=== PATIENT | female | born 1990 | race Caucasian/White ===

== ENCOUNTER 2019-06-17 15:35 | Inpatient (IN) ==
--- NOTE | 2019-06-17 15:52 | PROVIDER DOCUMENTATION ---
HPI-Psychological Disorder - General Chief Complaint: Intoxicated Stated Complaint: PSYCH (OUT OF MEDS) Time Seen by Provider: 06/17/19 15:36 Source: patient Unable to obtain history due to:: altered Allergies/Adverse Reactions: Patient Allergies Allergy/AdvReac Type Severity Reaction Status Date / Time haloperidol [From Haldol] Allergy Intermediate RASH Verified 06/17/19 16:07 Home Medications: Home Medication List Medication Instructions Recorded Confirmed Last Taken Type Metronidazole [Flagyl] 500 mg PO BID #14 tab 06/17/19 Unknown Rx - History of Present Illness-Psych Nature of Presenting Problem: [id number] presents to the ER for psych evaluation/intoxication via EMS. EMS reports that Ernesto VILLEDA called them for brain picker, as patient was [place] around [place]. EMS reports that she was "taking a nap under the overpass by the [employer]". Upon arrival, the patient is very disoriented. She answers every question with "yeah, Yes". EMS reports that she did the same thing in the ambulance. There is no previous history on this patient or external medication history available. However, the patient does appear to be intoxicated. One other visit to the ER shows that pt is homeless. Onset/Duration: reports: just prior to arrival Review of Systems - Adult - REVIEW OF SYSTEMS - ADULT ROS:: limited per condition Constitutional: reports: no symptoms reported Eyes: reports: no symptoms reported Ears, Nose, Mouth & Throat: reports: no symptoms reported Cardiovascular: reports: no symptoms reported Respiratory: reports: no symptoms reported Gastrointestinal: reports: no symptoms reported Genitourinary: reports: no symptoms reported Musculoskeletal: reports: no symptoms reported Integumentary: reports: no symptoms reported Neurological: reports: no symptoms reported Psychiatric: reports: no symptoms reported Endocrine: reports: no symptoms reported Hematologic/Lymphatic: reports: no symptoms reported Allergic/Immunologic: reports: no symptoms reported All Other Systems: Reviewed and Negative Past History - Adult - PAST MEDICAL HISTORY-ADULT Review of Records: reports: Old Records Reviewed, Nursing Assessment Review, Medications Reviewed, Social history reviewed & non-contributory. Major Childhood Illnesses: reports: denies history Cardiovascular: reports: denies history Respiratory: reports: denies history Gastrointestinal: reports: denies history Obstetrical/Gynecological: reports: denies history Genitourinary: reports: denies history Musculoskeletal: reports: denies history Neurological: reports: denies history Endocrine/Immune: reports: denies history Other Conditions: reports: denies history - PRIOR SURGERIES/PROCEDURES Surgical/Procedure History: reports: reviewed, not pertinent - IMMUNIZATION STATUS Childhood Immunizations: See Nurse Assessment Flu Vaccine: See Nurse Assessment - FAMILY HISTORY Family History: reviewed, not pertinent - SOCIAL HISTORY Living Situation: [facility] Physical Exam-Psych Focus - Physical Exam-Psych Initial Vital Signs Reviewed: Yes Appearance: disheveled, lethargic, slow to respond Neurological: disoriented x 3 HENMT: normocephalic/atraumatic, moist mucous membranes, dental decay Respiratory: lungs clear, normal breath sounds Cardiovascular: tachycardia Extremity: normal range of motion, normal gait Progress - PLAN OF CARE/RESULTS Progress/Plan/Lab Results: Vital Signs - 8 hr 06/18/19 02:10 06/18/19 02:43 06/18/19 02:50 Temperature 100.3 F H 99.9 F H Pulse Rate 122 H Pulse Rate [Sitting] 112 H Pulse Rate [Supine] 122 H Respiratory Rate 16 Blood Pressure 73/40 Blood Pressure [Sitting] 76/46 Blood Pressure [Supine] 68/35 O2 Sat by Pulse Oximetry 97 06/18/19 04:34 Temperature 98.8 F Pulse Rate 89 Pulse Rate [Sitting] Pulse Rate [Supine] Respiratory Rate 20 Blood Pressure 89/43 Blood Pressure [Sitting] Blood Pressure [Supine] O2 Sat by Pulse Oximetry 98 Laboratory Results - last 24 hr 06/17/19 06/17/19 06/17/19 15:59 15:59 16:01 WBC RBC Hgb Hct MCV MCH MCHC RDW Std Deviation Plt Count MPV Immature Gran % (Auto) Neut % (Auto) Lymph % (Auto) Harding % (Auto) Eos % (Auto) Baso % (Auto) Immature Gran # (Auto) Neut # (Auto) Lymph # (Auto) Harding # (Auto) Eos # (Auto) Baso # (Auto) Sodium Potassium Chloride Carbon Dioxide Anion Gap BUN Creatinine Estimated GFR/1.73 m2 BUN/Creatinine Ratio Glucose Calculated Osmolality Calcium Total Bilirubin AST ALT Alkaline Phosphatase Total Protein Albumin Globulin Albumin/Globulin Ratio Plasma Lactate Urine Source CLEAN CATCH Urine Color YELLOW Urine Turbidity CLEAR Urine pH 7.5 Ur Specific Woodward 1.014 Urine Protein NEGATIVE Ur Glucose (Stick) NEGATIVE Ur Ketones (Stick) NEGATIVE Urine Blood NEGATIVE Urine Nitrite NEGATIVE Urine Bilirubin NEGATIVE Urobilinogen Dipstick NORMAL Urine Leukocytes SMALL A Urine WBC (Auto) 10-20 A Urine RBC (Auto) <10 U Epithel Cells (Auto) <10 Urine Bacteria (Auto) NEGATIVE Urine Crystals NONE SEEN Small Round Cells Not Reportable Urine Casts Not Reportable Urine Yeast-like Cells Not Reportable Urine Opiates Screen NONE DETECTED Ur Oxycodone Screen NONE DETECTED Ur Methadone, Qual NONE DETECTED Ur Barbiturates Screen NONE DETECTED Ur Phencyclidine Scrn NONE DETECTED Ur Amphetamines Screen NONE DETECTED U Benzodiazepines Scrn NONE DETECTED Urine Cocaine Screen NONE DETECTED U Cannabinoids Screen NONE DETECTED Plasma/Serum Ethyl Alc 06/17/19 06/17/19 06/18/19 16:07 16:07 04:46 WBC 12.38 H RBC 4.99 Hgb 11.7 L Hct 37.3 MCV 74.7 L MCH 23.4 L MCHC 31.4 L RDW Std Deviation 15.3 H Plt Count 372 MPV 11.2 H Immature Gran % (Auto) 0.2 Neut % (Auto) 85.9 H Lymph % (Auto) 9.2 L Harding % (Auto) 3.6 Eos % (Auto) 0.9 Baso % (Auto) 0.2 Immature Gran # (Auto) 0.03 Neut # (Auto) 10.62 H Lymph # (Auto) 1.14 L Harding # (Auto) 0.45 Eos # (Auto) 0.11 Baso # (Auto) 0.03 Sodium 133 L Potassium 4.2 Chloride 94 L Carbon Dioxide 25 Anion Gap 14 BUN 5 L Creatinine 0.6 Estimated GFR/1.73 m2 > 60 BUN/Creatinine Ratio 8 Glucose 71 Calculated Osmolality 262 Calcium 9.3 Total Bilirubin 0.31 AST 17 ALT 13 Alkaline Phosphatase 92 Total Protein 7.1 Albumin 3.6 Globulin 3.5 Albumin/Globulin Ratio 1.0 Plasma Lactate 0.5 Urine Source Urine Color Urine Turbidity Urine pH Ur Specific Woodward Urine Protein Ur Glucose (Stick) Ur Ketones (Stick) Urine Blood Urine Nitrite Urine Bilirubin Urobilinogen Dipstick Urine Leukocytes Urine WBC (Auto) Urine RBC (Auto) U Epithel Cells (Auto) Urine Bacteria (Auto) Urine Crystals Small Round Cells Urine Casts Urine Yeast-like Cells Urine Opiates Screen Ur Oxycodone Screen Ur Methadone, Qual Ur Barbiturates Screen Ur Phencyclidine Scrn Ur Amphetamines Screen U Benzodiazepines Scrn Urine Cocaine Screen U Cannabinoids Screen Plasma/Serum Ethyl Alc Orders Category Date Time Status Consult for Inpt Psych Tx DIRECTED Care 06/17/19 16:38 Active ED: Orthostatic Vital Signs (ER use this DIRECTED Care 06/18/19 02:31 Active NEWS Score 2-4:Order NEWS Lactate Series NOW Care 06/18/19 04:59 Active Regular Diet Diet 06/17/19 18:06 Active ALCOHOL BLOOD Stat Lab 06/17/19 16:01 Completed BLOOD CULTURE [BLDCUL] Stat Lab 06/18/19 04:51 Results CBC WITH ELECTRONIC DIFF [HEME] Stat Lab 06/17/19 16:07 Completed CMP [COMPREHENSIVE METABOLIC PANEL] [CHEM] Stat Lab 06/17/19 16:07 Completed LACTATE, PLASMA [CHEM] Lab 06/18/19 08:00 Uncollected LACTATE, PLASMA [CHEM] Lab 06/18/19 11:00 Uncollected LACTATE, PLASMA [CHEM] Q3H Lab 06/18/19 04:46 Completed UA NIMS W/REFLEX CULT [URINALYSIS] Stat Lab 06/17/19 15:59 Completed URINE CULTURE [RM] Routine Lab 06/17/19 15:59 Received URINE DRUG SCREEN Stat Lab 06/17/19 15:59 Completed URINE MANUAL MICROSCOPIC [URINALYSIS] Stat Lab 06/17/19 15:59 Completed 0.9% Sodium Chloride Inj [Ns] 1,000 ml Med 06/18/19 02:31 Discontinued IV 999 mls/hr 0.9% Sodium Chloride Inj [Ns] 1,000 ml Med 06/18/19 04:33 Discontinued IV 999 mls/hr Acetaminophen [Tylenol] Med 06/18/19 02:31 Discontinued 1,000 mg PO NOW ONE Azithromycin [Zithromax] Med 06/17/19 16:33 Discontinued 1,000 mg PO NOW ONE CefTRIAXONE [Rocephin] Med 06/17/19 16:33 Discontinued 1 gm IM NOW ONE Lidocaine 1% Pf [Xylocaine-Mpf 1%] Med 06/17/19 16:33 Discontinued 5 ml INJ NOW ONE Metronidazole [Flagyl] Med 06/17/19 21:00 Discontinued 500 mg PO BID Metronidazole [Flagyl] Med 06/17/19 21:00 Discontinued 500 mg PO BID Metronidazole [Flagyl] Med 06/18/19 03:30 Active 500 mg PO Q12H Olanzapine [Zyprexa] Med 06/17/19 18:37 Discontinued 15 mg PO NOW ONE Ondansetron [Zofran] Med 06/18/19 03:28 Discontinued 8 mg IV NOW ONE Result Diagrams: 06/17/19 16:07 06/17/19 16:07 - REASSESSMENT Reassessment #1 Time Reassessed: 02:29 Status: other (Pt spiked a temp and her SBP was 70. Pt asymptomatic escept for the temp. WIll get CXR, blood cultres, tylenol and IVF) - PSYCHIATRIC Medically clear for psych eval and/or transfer to IP bed.: Yes Psych patient progress: patient screens for inpatient psych, however, [facility] states that if she chooses to leave she may do so at her own choosing. - CONSULTS/PCP/HOSPITALIST Notification #1 *Consult/PCP/Hospitalist*: d/w Dr Byrd Time Discussed: 06:15 Consult Disposition: Admit (Advised another bolus and re-evaluate. Advised HCG urine, Chest Xray and CT head. Will admit) - CHANGE OF SHIFT REPORT (ED Provider) 1 Report Given and Care Transferred to:: Dr Holman Time of Transfer: 19:39 Items Pending: Other (psych placement) Departure - Departure Date of Disposition Decision: 06/18/19 Time of Disposition Decision: 06:23 DIAGNOSIS: AMS (altered mental status), Homelessness, Orthostatic hypotension, Hypotension Disposition: ADMITTED INPATIENT 09 Certified Medical Emergency: Emergent Condition: Stable Prescriptions: Metronidazole [Flagyl] 500 mg PO BID #14 tab Prescription Printed Referrals and Follow-Ups: None,PCP [Primary Care Provider] - - Critical Care Note This patient required my direct & personal management of CC.: No Attestation - Physician/ ZECHARIAH Attestation Patient care was provided by Advanced Practice Provider:: Yes Advanced Practice Provider:: Saurav Pitt Advanced Practice Provider documentation review:: The Mid-level provider documentation, treatment plan and medical decision making was reviewed by the physician who agrees with all treatment and medical decision making by the MLP. The physician spent face to face time with patient:: Yes Advanced Practice Provider documentation review:: Supervising physician onsite and consulted in the evaluation and care of this patient. The physician did have a face to face encounter with the patient.
[2019-06-17 16:14] LABS: URINE SOURCE CLEAN CATCH
[2019-06-17 16:21] LABS: BILIRUBIN URINE NEGATIVE (NEGATIVE); BLOOD URINE NEGATIVE (NEGATIVE); COLOR YELLOW; GLUCOSE URINE NEGATIVE (NEGATIVE); KETONE URINE NEGATIVE (NEGATIVE); LEUKOCYTES URINE SMALL (NEGATIVE); NITRITE URINE NEGATIVE (NEGATIVE); PH URINE 7.5; PROTEIN URINE NEGATIVE (NEGATIVE); SP GRAVITY URINE 1.014; TURBIDITY URINE CLEAR (CLEAR); UROBILINOGEN URINE NORMAL (NORMAL)
[2019-06-17 16:23] LABS: UR EPITHELIAL CELLS <10 /HPF (<10); URINE BACTERIA NEGATIVE /HPF; URINE RBC <10 /HPF (<10)
[2019-06-17 16:31] LABS: UR AMPHETAMINES QUAL NONE DETECTED (NONE DETECT); UR BARBITUATES QUAL NONE DETECTED (NONE DETECT); UR BENZODIAZEPIN QUAL NONE DETECTED (NONE DETECT); UR CANNABINOIDS QUAL NONE DETECTED (NONE DETECT); UR COCAINE QUAL NONE DETECTED (NONE DETECT); UR METHADONE QUAL NONE DETECTED (NONE DETECT); UR OPIATES QUAL NONE DETECTED (NONE DETECT); UR OXYCODONE QUAL NONE DETECTED (NONE DETECT); UR PCP QUAL NONE DETECTED (NONE DETECT)
[2019-06-17] MEDS ORDERED: ROCEPHIN IM ONE (16:33)
[2019-06-17] MEDS ORDERED: ZITHROMAX PO ONE (16:33)
[2019-06-17] MEDS ORDERED: XYLOCAINE-MPF 1% INJ ONE (16:33)
[2019-06-17 16:36] LABS: URINE CRYSTALS NONE SEEN
[2019-06-17] MEDS ORDERED: ZYPREXA PO ONE (18:37)
[2019-06-17 18:53] LABS: BASO# 0.03 X1000 (0.0-0.2); BASO% 0.2 % (0.0-0.8); EOS# 0.11 X1000 (0.0-0.7); EOS% 0.9 % (0.0-10.0); HEMATOCRIT 37.3 % (37.0-47.0); HEMOGLOBIN 11.7 g/dL (12.0-16.0); IMM GRAN# 0.03 X1000 (0.0-0.04); IMM GRAN% 0.2 % (0.0-0.5); LYMPH# 1.14 X1000 (1.2-3.4); LYMPH% 9.2 % (20.5-51.1); MCH 23.4 PG (27-31); MCHC 31.4 g/dL (33-37); MCV 74.7 FL (81-99); MONO# 0.45 X1000 (0.11-0.59); MONO% 3.6 % (1.7-9.3); MPV 11.2 FL (7.4-10.4); NEUT# 10.62 X1000 (1.4-6.5); NEUT% 85.9 % (42.2-75.2); PLT 372 X1000 (130-400); RBC 4.99 XMIL (4.2-5.4); RDW 15.3 % (11.5-14.5); WBC 12.38 X1000 (4.8-10.8)
[2019-06-17 19:17] LABS: AGAP 14; ALBUMIN 3.6 g/dL (3.5-5.0); ALKALINE PHOSPHATASE 92 U/L (32-104); BUN 5 mg/dL (8-22); CALCIUM 9.3 mg/dL (8.8-10.2); CHLORIDE 94 mmol/L (98-107); COSMO 262; CREATININE 0.6 mg/dL (0.5-0.9); ESTIMATED GFR > 60; GLUCOSE 71 mg/dL (70-104); GOT 17 U/L (10-30); GPT 13 U/L (10-36); POTASSIUM 4.2 mmol/L (3.5-5.1); SODIUM 133 mmol/L (136-145); TCO2 25 mmol/L (25-35); TOTAL BILIRUBIN 0.31 mg/dL (0.20-1.00); TOTAL PROTEIN 7.1 g/dL (6.3-8.3)
[2019-06-17] MEDS ORDERED: FLAGYL PO SCH ×2 (21:00)
[2019-06-18] MEDS ORDERED: NS 1,000 ML IV ONE ×3 (02:31→06:42)
[2019-06-18] MEDS ORDERED: TYLENOL PO ONE (02:31)
[2019-06-18] MEDS ORDERED: ZOFRAN IV ONE (03:28)
[2019-06-18] MEDS ORDERED: FLAGYL PO SCH (03:30)
[2019-06-18] MEDS ORDERED: ZOFRAN IV PRN (07:42)
[2019-06-18] MEDS: NS 1,000 ML IV SCH ×2 (08:03→20:22)
[2019-06-18] MEDS: LEVOPHED 8 MG in D5 1/2 NS 250 ML IV SCH ×2 (08:07→17:03)
--- NOTE | 2019-06-18 08:53 | HISTORY AND PHYSICAL ---
PRIMARY CARE PHYSICIAN: Listed as none. CHIEF COMPLAINT: Was found by the police department [place], was very disoriented, and unable to answer questions. HISTORY OF PRESENTING ILLNESS: This is a 28-year-old female, who presents to [facility] via EMS after she was found by [place] [employer] taking a "nap" under the overpass by the [employer] market. When she arrived, she was disoriented, stated when she first arrived that she was out of her [facility] and [facility]. When they asked her why she was here, the patient stated" my BBs hurt, they will produce milk", would not answer questions appropriately, but did deny any recreational drug use. When she first arrived, her temperature was 98.4 degrees, blood pressure was 100/70. Around 2 a.m. this morning, her temperature went to 100.3, her blood pressure dropped to 68/35 lying and a sitting of 76/46. She was given a total of 3 L of normal saline and it is still in Trendelenburg 88/42. Laboratory data was fairly unremarkable. Urinalysis was clear except for 10 to 20 white blood cells. Her urine drug screen was negative. Her serum alcohol level showed none detected. She has a pending chest x-ray and CT of the head to be done this morning, and she will now be placed on a Levophed drip and admitted to the intensive care unit. PAST MEDICAL HISTORY: Unknown, but she does have a psychiatric background according to her stating that she was out of [facility] and [facility]. PAST SURGICAL HISTORY: Back surgery. FAMILY HISTORY: Reviewed and noncontributory. SOCIAL HISTORY: She is noted to be homeless. Smokes a pack of cigarettes a day for an unknown amount of time. Drinks alcohol occasionally, and denied any illicit drug use. ALLERGIES: Haloperidol. HOME MEDICATIONS: Unknown. LABORATORY DATA: Showed a white blood cell count of 12.38, hemoglobin 11.7, hematocrit 37.3, platelets 372,000. Sodium 133, potassium 4.2, chloride 94, CO2 25, BUN of 5, creatinine 0.6, glucose 71. Plasma lactate was 0.5. Urinalysis was negative except for small leukocytes. Urine drug screen was none detected. Serum plasma alcohol level showed none detected. She currently has a chest x-ray and CT of the head without contrast ordered and we will review those results when available. REVIEW OF SYSTEMS: Unable to obtain from patient. PHYSICAL EXAMINATION: VITAL SIGNS: On arrival, she had a temperature of 98.4 degrees, pulse 120, respirations 20, blood pressure 100/70, saturating 99% on room air. Around 2 a.m. this morning, she did have a temperature of 100.3 degrees. Her blood pressure lying was 68/35, sitting was 76/46. She did receive 3 L of normal saline total and blood pressure is still in Trendelenburg 88/42. HEEMNT: Normocephalic, atraumatic. Normal ENT inspection. Oropharynx and nares are clear. She is noted to have some dental decay. EYES: Pupils are equal, round, reactive to light and accommodation. Extraocular movements are intact. NECK: Normal inspection, normal range of motion. LUNGS: Clear to auscultation bilaterally with equal lung expansion and chest wall movement. HEART: She had some tachycardia when she first arrived, but now is normal sinus rhythm. No murmurs, rubs, or gallops. ABDOMEN: Soft, nontender, nondistended. Bowel sounds are present x4 quadrants. MUSCULOSKELETAL: Unable to assess. NEUROLOGICAL: She is disoriented x3, lethargic, unable to answer my questions at this time and appears disheveled, but otherwise cranial nerves II through XII appear grossly intact. ASSESSMENT: 1. Altered mental status. 2. Hypotension. 3. Tobacco abuse. 4. Mild leukocytosis. PLAN: She will be admitted to the intensive care unit, placed on telemetry, placed on a Levophed drip, regular diet. She has a chest x-ray two-view and CT of the head without contrast pending. We will give her normal saline at 75 mL an hour. She did receive Zyprexa 15 mg p.o. x1 dose that certainly could possibly be contributing to her lethargy and her low blood pressure. She received some antibiotics in the emergency room of Rocephin 1 g IM x1 and Flagyl 500 mg x1. I do not think at this time she needs any antibiotics until we review her chest x-ray and CT of the head as currently she does not have a clear source of any infection. She has not had any other fever as currently her temperature is 98.6 degrees. So, we will review her labs when available. We will recheck a CBC and BMP in the a.m. Urine culture and blood cultures x2 are pending and will complete her serial lactates and further orders after seen by attending. Dictated by CHALO Sweet for Ross Shelton MD cc: CHALO Sweet MD Pt likely has septic shock from UTI: will treat with abx, IVF volume expansion and vasopressors as needed; will followup on culture reports; blood cultures are negative thus far. Pt may have underlying psych issues as well. APENOT MTDD
--- NOTE | 2019-06-18 08:59 | Diag Imaging Result Doc PS360 ---
CT HEAD W/O CONTRAST - 06/18/2019 INDICATION: ams COMPARISON: None FINDINGS: The ventricles and sulci are normal in size and contour. No intracranial mass or hemorrhage. The skull is intact. The sinuses mastoids and middle ears are clear. IMPRESSION: Negative exam. This exam was performed using automated exposure control, adjustment of mA or kV according to patient size, and/or use of iterative reconstruction technique Electronically signed by Ismael Anderson 06/18/2019 8:57 AM
--- NOTE | 2019-06-18 09:17 | Diag Imaging Result Doc PS360 ---
EXAM: CHEST-2 VIEWS 06/18/2019 HISTORY: ams TECHNIQUE: AP and lateral chest COMMENT: There is no evidence of acute cardiac or pulmonary disease. There are no previous studies available for comparison. IMPRESSION: No evidence of acute disease. Electronically signed by Andrés Lange 06/18/2019 9:14 AM
[2019-06-18] MEDS: ROCEPHIN 1 GM in NS 50 ML IV SCH (12:00)
[2019-06-18] MEDS: TYLENOL PO PRN (19:40)
[2019-06-18] MEDS ORDERED: ATIVAN IV ONE (21:53)
[2019-06-19 06:01] LABS: BASO# 0.03 X1000 (0.0-0.2); BASO% 0.7 % (0.0-0.8); EOS# 0.29 X1000 (0.0-0.7); EOS% 6.8 % (0.0-10.0); HEMATOCRIT 27.7 % (37.0-47.0); HEMOGLOBIN 8.6 g/dL (12.0-16.0); LYMPH% 44.6 % (20.5-51.1); MCH 23.6 PG (27-31); MCV 76.1 FL (81-99); MONO# 0.54 X1000 (0.11-0.59); MONO% 12.7 % (1.7-9.3); MPV 10.6 FL (7.4-10.4); NEUT% 35.2 % (42.2-75.2); PLT 254 X1000 (130-400); RBC 3.64 XMIL (4.2-5.4); RDW 15.2 % (11.5-14.5); WBC 4.26 X1000 (4.8-10.8)
[2019-06-19 06:38] LABS: AGAP 8; BUN 7 mg/dL (8-22); CALCIUM 7.2 mg/dL (8.8-10.2); CHLORIDE 113 mmol/L (98-107); COSMO 276; CREATININE 0.4 mg/dL (0.5-0.9); ESTIMATED GFR > 60; GLUCOSE 81 mg/dL (70-104); POTASSIUM 3.2 mmol/L (3.5-5.1); SODIUM 140 mmol/L (136-145); TCO2 19 mmol/L (25-35)
[2019-06-19] MEDS: NS 1,000 ML IV SCH (10:30)
[2019-06-19] MEDS: ROCEPHIN 1 GM in NS 50 ML IV SCH (14:11)
[2019-06-19] MEDS ORDERED: KLOR-CON PO ONE (15:00)
--- NOTE | 2019-06-19 15:03 | PROGRESS NOTE ---
DATE: 06/19/2019 SUBJECTIVE: The patient has no complaints. She is standing. She seems to be doing okay. No major complaints. OBJECTIVE: Blood pressure is 91/50, heart rate 91, respiratory 25, temperature 98.4 degrees. No temp since 100.3 yesterday.Cardiovascular: Regular rate and rhythm. Pulmonary: Bilateral breath sounds clear to auscultation. GI: Soft, nontender, nondistended. Bowel sounds are positive. LABORATORY DATA: 1. Again her hemoglobin and hematocrit has dropped a bit. I get a sense she may be iron deficient. MCV is low. We will check iron stores and follow. 2. Hypokalemia. We will supplement and follow. 3. Urinary tract infection with sepsis, which has now resolved. It is a somewhat resistant E. coli but it is sensitive to cefazolin so we should be able to discharge her on Keflex. She is now off pressors. I anticipate discharge tomorrow. She is homeless so we will see how things look tomorrow and decide about discharge possibility. cc: Ross Shelton MD
[2019-06-19] MEDS: TYLENOL PO PRN (20:28)
[2019-06-20] MEDS: NS 1,000 ML IV SCH ×2 (02:37→16:42)
[2019-06-20 06:39] LABS: BASO# 0.04 X1000 (0.0-0.2); BASO% 0.7 % (0.0-0.8); EOS# 0.35 X1000 (0.0-0.7); HEMATOCRIT 31.1 % (37.0-47.0); HEMOGLOBIN 9.7 g/dL (12.0-16.0); LYMPH# 2.34 X1000 (1.2-3.4); LYMPH% 40.4 % (20.5-51.1); MCH 23.5 PG (27-31); MCHC 31.2 g/dL (33-37); MCV 75.3 FL (81-99); MONO% 5.2 % (1.7-9.3); MPV 10.7 FL (7.4-10.4); NEUT# 2.76 X1000 (1.4-6.5); NEUT% 47.7 % (42.2-75.2); PLT 328 X1000 (130-400); RBC 4.13 XMIL (4.2-5.4); RDW 15.4 % (11.5-14.5); WBC 5.79 X1000 (4.8-10.8)
[2019-06-20 07:20] LABS: AGAP 8; BUN 8 mg/dL (8-22); CALCIUM 8.4 mg/dL (8.8-10.2); CHLORIDE 101 mmol/L (98-107); COSMO 268; CREATININE 0.5 mg/dL (0.5-0.9); ESTIMATED GFR > 60; GLUCOSE 94 mg/dL (70-104); IRON SATURATION 9 %; POTASSIUM 3.8 mmol/L (3.5-5.1); SODIUM 135 mmol/L (136-145); TCO2 26 mmol/L (25-35); TIBC 272 ug/dL; TOTAL IRON 24 ug/dL (49-151); UNBOUND IRON 248 ug/dL (112-346)
[2019-06-20 07:28] LABS: FERRITIN 36 ng/mL (13-150)
[2019-06-20] MEDS ORDERED: NS 500 ML IV ONE (09:26)
[2019-06-20] MEDS ORDERED: FOLIC ACID 1 MG in NS 50 ML IV ONE (11:01)
[2019-06-20] MEDS: ROCEPHIN 1 GM in NS 50 ML IV SCH (13:02)
[2019-06-20] MEDS ORDERED: FERRLECIT 125 MG in NS 100 ML IV ONE (17:13)
--- NOTE | 2019-06-20 17:32 | PROGRESS NOTE ---
DATE: 06/20/2019 SUBJECTIVE: Patient has no major complaints. OBJECTIVE: Vital Signs: Blood pressure is stable at 92/46, heart rate 86, respiratory rate 19, temperature 98.1 degrees, 100% on room air. Cardiovascular: Regular rate and rhythm. Pulmonary: Bilateral breath sounds clear to auscultation. GI: Soft, nontender, nondistended. LABORATORY DATA: White count 5, hemoglobin and hematocrit 9 and 31, platelets 328,000. Basic was normal. Folate was low at 7.2. Her iron was 24, which is low. Her iron saturation is 9%, which is also low. PROBLEM LIST: 1. Anemia, possibly iron deficiency versus other. We will supplement her with folate and iron and see how she does. 2. Urinary tract infection with sepsis with a positive culture for Escherichia coli which is sensitive to Rocephin. So, we will continue to follow. 3. Possible acute psychosis. We are getting a psych evaluation and decide about what other treatment options we have for her. Possibly home soon if stable. cc: Ross Shelton MD
[2019-06-20] MEDS: TYLENOL PO PRN (20:50)
[2019-06-20 22:38] LABS: BASO% 1.3 % (0.0-0.8); EOS# 0.26 X1000 (0.0-0.7); EOS% 3.3 % (0.0-10.0); HEMATOCRIT 34.4 % (37.0-47.0); HEMOGLOBIN 10.8 g/dL (12.0-16.0); LYMPH# 2.88 X1000 (1.2-3.4); LYMPH% 36.2 % (20.5-51.1); MCH 23.5 PG (27-31); MCHC 31.4 g/dL (33-37); MCV 74.9 FL (81-99); MONO% 7.5 % (1.7-9.3); MPV 10.6 FL (7.4-10.4); NEUT# 4.11 X1000 (1.4-6.5); NEUT% 51.7 % (42.2-75.2); PLT 378 X1000 (130-400); RBC 4.59 XMIL (4.2-5.4); RDW 15.5 % (11.5-14.5); WBC 7.95 X1000 (4.8-10.8)
[2019-06-20 22:59] LABS: AGAP 13; ALBUMIN 3.4 g/dL (3.5-5.0); ALKALINE PHOSPHATASE 65 U/L (32-104); BUN 11 mg/dL (8-22); CALCIUM 9.1 mg/dL (8.8-10.2); CHLORIDE 101 mmol/L (98-107); COSMO 276; CREATININE 0.5 mg/dL (0.5-0.9); ESTIMATED GFR > 60; GLUCOSE 87 mg/dL (70-104); GOT 20 U/L (10-30); GPT 16 U/L (10-36); POTASSIUM 4.1 mmol/L (3.5-5.1); SODIUM 139 mmol/L (136-145); TCO2 25 mmol/L (25-35); TOTAL PROTEIN 6.7 g/dL (6.3-8.3)
[2019-06-20 23:02] LABS: TOTAL BILIRUBIN < 0.15 mg/dL (0.20-1.00)
[2019-06-20 23:11] LABS: BANDS 4 % (0-1); EOS 3 % (1-10); LYMPHS 40 % (21-51); SEGS 52 % (42-75)
[2019-06-21 01:02] LABS: URINE SOURCE CLEAN CATCH
[2019-06-21 01:06] LABS: BILIRUBIN URINE NEGATIVE (NEGATIVE); BLOOD URINE SMALL (NEGATIVE); COLOR STRAW; GLUCOSE URINE NEGATIVE (NEGATIVE); KETONE URINE NEGATIVE (NEGATIVE); LEUKOCYTES URINE NEGATIVE (NEGATIVE); NITRITE URINE NEGATIVE (NEGATIVE); PH URINE 6.5; PROTEIN URINE NEGATIVE (NEGATIVE); SP GRAVITY URINE 1.006; TURBIDITY URINE CLEAR (CLEAR); UROBILINOGEN URINE NORMAL (NORMAL)
[2019-06-21 01:08] LABS: UR EPITHELIAL CELLS <10 /HPF (<10); URINE BACTERIA NEGATIVE /HPF; URINE RBC <10 /HPF (<10); URINE WBC <10 /HPF (<10)
[2019-06-21] MEDS: NS 1,000 ML IV SCH ×4 (04:31→18:25)
[2019-06-21] MEDS: ROCEPHIN 1 GM in NS 50 ML IV SCH (11:08)
[2019-06-21] MEDS ORDERED: NS 500 ML IV ONE ×2 (11:57→18:38)
[2019-06-21 14:03] LABS: HEMATOCRIT 30.3 % (37.0-47.0); HEMOGLOBIN 9.4 g/dL (12.0-16.0); MCH 23.6 PG (27-31); MCV 75.9 FL (81-99); MPV 10.4 FL (7.4-10.4); RBC 3.99 XMIL (4.2-5.4); RDW 15.2 % (11.5-14.5); WBC 9.67 X1000 (4.8-10.8)
[2019-06-21 14:47] LABS: AGAP 6; ALB/GLOB RATIO 1.2; ALKALINE PHOSPHATASE 51 U/L (32-104); BUN 9 mg/dL (8-22); CALCIUM 8.3 mg/dL (8.8-10.2); CHLORIDE 99 mmol/L (98-107); COSMO 265; CREATININE 0.5 mg/dL (0.5-0.9); ESTIMATED GFR > 60; GLUCOSE 92 mg/dL (70-104); GOT 16 U/L (10-30); GPT 14 U/L (10-36); POTASSIUM 3.9 mmol/L (3.5-5.1); SODIUM 133 mmol/L (136-145); TCO2 28 mmol/L (25-35); TOTAL BILIRUBIN < 0.15 mg/dL (0.20-1.00); TOTAL PROTEIN 5.6 g/dL (6.3-8.3)
[2019-06-21] MEDS ORDERED: STERILE WATER INJ. INJ PRN (18:53)
[2019-06-21] MEDS ORDERED: ZYPREXA ZYDIS PO SCH (21:00)
[2019-06-21] MEDS: GEODON IM PRN (22:43)
[2019-06-22] MEDS: NS 1,000 ML IV SCH ×6 (00:32→22:09)
[2019-06-22] MEDS ORDERED: CORTROSYN IV ONE (07:00)
[2019-06-22 08:36] LABS: AGAP 9; BUN 8 mg/dL (8-22); CALCIUM 8.2 mg/dL (8.8-10.2); CHLORIDE 107 mmol/L (98-107); COSMO 277; CREATININE 0.4 mg/dL (0.5-0.9); ESTIMATED GFR > 60; GLUCOSE 86 mg/dL (70-104); POTASSIUM 4.2 mmol/L (3.5-5.1); SODIUM 140 mmol/L (136-145); TCO2 24 mmol/L (25-35)
[2019-06-22 08:37] LABS: BASO# 0.07 X1000 (0.0-0.2); BASO% 1.3 % (0.0-0.8); EOS# 0.24 X1000 (0.0-0.7); EOS% 4.3 % (0.0-10.0); HEMATOCRIT 30.6 % (37.0-47.0); HEMOGLOBIN 9.3 g/dL (12.0-16.0); IMM GRAN# 0.02 X1000 (0.0-0.04); IMM GRAN% 0.4 % (0.0-0.5); LYMPH# 2.38 X1000 (1.2-3.4); MCH 23.2 PG (27-31); MCHC 30.4 g/dL (33-37); MCV 76.3 FL (81-99); MONO# 0.38 X1000 (0.11-0.59); MONO% 6.9 % (1.7-9.3); MPV 10.4 FL (7.4-10.4); NEUT# 2.45 X1000 (1.4-6.5); NEUT% 44.1 % (42.2-75.2); PLT 367 X1000 (130-400); RBC 4.01 XMIL (4.2-5.4); RDW 15.5 % (11.5-14.5); WBC 5.54 X1000 (4.8-10.8)
[2019-06-22] MEDS: ROCEPHIN 1 GM in NS 50 ML IV SCH (11:39)
[2019-06-22] MEDS: GEODON IM PRN (13:51)
[2019-06-22] MEDS ORDERED: PROAMATINE PO ONE (15:24)
[2019-06-22] MEDS ORDERED: ZYPREXA ZYDIS PO ONE (18:43)
--- NOTE | 2019-06-22 19:02 | PROGRESS NOTE ---
DATE: 06/22/2019 SUBJECTIVE: The patient has no major complaints. OBJECTIVE: Blood pressure, the last one 105/48, heart rate 74, respiratory rate of 16, temperature 97.9 degrees. Cardiovascular: Regular rate and rhythm. Pulmonary: Bilateral breath sounds clear to auscultation. GI: Soft, nontender, nondistended. Bowel sounds were positive. White count is 5, hemoglobin and hematocrit 9 and 30, platelets 367,000. Basic was normal. Her adrenal axis is intact. Her Cortrosyn stim test was negative. She had a response cortisol level of 11 and then went up to 20 after Cortrosyn so I would consider that to be normal response. PROBLEM LIST: 1. Anemia with folate and iron deficiency. We will continue supplementation and follow. 2. Escherichia coli urinary tract infection. She is on Rocephin. We can change her to Keflex at discharge. 3. Transient hypotension. Really unclear what the source is. Initially thinking it was more sepsis but I do not think she is persistently septic. I think she runs low. I do not know if there is some degree of dysautonomia that is uncharacterized. We have ruled out adrenal insufficiency. I am going to go ahead and start some midodrine and see how she does. 4. Acute psychotic disorder, unclear of the etiology. Likely, she has some underlying psychosis and may be developing schizophrenia. She is willing to seek treatment. She says she wants to get on some medications. I have started some Zyprexa because we are doing things over and over again with [facility]. The patient was initially accepted, then she was not accepted because she was hypotensive. We have not really been able to find another place for her to go because of her social situation. She is homeless but I think if she is felt to be stable for discharge per [facility], then we will have to proceed toward that if her blood pressure stabilizes. cc: Ross Shelton MD
[2019-06-23] MEDS: NS 1,000 ML IV SCH ×2 (06:00→08:16)
[2019-06-23] MEDS: PROAMATINE PO SCH ×5 (06:01→16:21)
[2019-06-23] MEDS: GEODON IM PRN ×2 (09:55→16:20)
[2019-06-23] MEDS: ROCEPHIN 1 GM in NS 50 ML IV SCH (12:23)
--- NOTE | 2019-06-23 18:31 | PROGRESS NOTE ---
DATE: 06/23/2019 SUBJECTIVE: Patient has no major complaints. OBJECTIVE: Vital signs: Blood pressure 91/46, heart rate of 68, respiratory rate of 16, temperature 97.6 degrees. Pulmonary: Bilateral breath sounds clear to auscultation. GI: Soft, nontender, nondistended. Bowel sounds are positive. LABORATORY DATA: White count 5. PROBLEM LIST: 1. Anemia. Folate, iron deficiency. Will continue supplementation. 2. Escherichia coli urinary tract infection. She is on Rocephin. We can easily change to Keflex, which I am going to go ahead and do because somehow this is being interpreted as she is not medically stable. 3. Hypotension. She seems to be better, so we will continue to monitor. 4. Psychosis. She is still having episodes. I am trying to work with psychiatric facilities to help me in placement. I cannot really get a clearance. I think there are some obstacles to care because she is homeless, but she does have benefits, and I think she is going to need that. If [facility] is not helpful, which apparently they do not have a bed right now, then I may get an inpatient consult and get some guidance there. cc: Ross Shelton MD
[2019-06-23] MEDS ORDERED: STERILE WATER INJ. INJ ONE (19:11)
[2019-06-23] MEDS ORDERED: GEODON IM ONE (19:11)
[2019-06-23] MEDS: ZYPREXA ZYDIS PO SCH (19:59)
[2019-06-24] MEDS: ATIVAN IV PRN ×3 (08:03→17:35)
[2019-06-24] MEDS: PROAMATINE PO SCH ×3 (08:03→17:34)
[2019-06-24] MEDS: KEFLEX PO SCH ×3 (08:03→17:34)
[2019-06-24] MEDS: GEODON IM PRN (18:58)
--- NOTE | 2019-06-24 19:06 | PROGRESS NOTE ---
DATE: 06/24/2019 SUBJECTIVE: Patient has no major complaints. OBJECTIVE: Vital signs: Blood pressure 124/72, heart rate 85, respiratory rate 19, temperature 98.2 degrees. Cardiovascular: Regular rate and rhythm. Pulmonary: Bilateral breath sounds clear to auscultation. Gastrointestinal: Soft, nontender, nondistended. Bowel sounds are positive. LABORATORY DATA: No new laboratory data. PROBLEM LIST: 1. Escherichia coli urinary tract infection. She is on Keflex, would continue that for 7 days. 2. Anemia related to folate and iron deficiency. We will continue supplementation with both. 3. Acute psychosis or brief psychotic disorder. I am pretty sure she has underlying schizophrenia or some sort of schizophreniform disorder. She still has issues actively. We have put her on some Zyprexa, and we will get a psychiatric evaluation. [facility] has not been able to except her. There was a narrow window, and bed was lost. 4. Transient hypotension. She is not adrenally insufficient. I do not think she is septic at this point. She has responded to midodrine without difficulty so we will continue that for the time being. cc: Ross Shelton MD
[2019-06-24] MEDS: ZYPREXA ZYDIS PO SCH (20:05)
[2019-06-25] MEDS: ICAR-C PO SCH (09:27)
[2019-06-25] MEDS: KEFLEX PO SCH ×3 (09:27→18:36)
[2019-06-25] MEDS: PROAMATINE PO SCH ×3 (09:27→18:36)
[2019-06-25] MEDS: FOLIC ACID PO SCH (09:27)
--- NOTE | 2019-06-25 12:54 | Diag Imaging Result Doc PS360 ---
EXAM: MRI BRAIN W/WO CONTRAST INDICATION: hallucinations. eval for organic cause. COMPARISON: None. FINDINGS: There is no evidence of acute infarct. The deep white matter signal is unremarkable. There is no discrete intracranial mass, mass effect, or intracranial hemorrhage. There is no evidence of abnormal intracranial enhancement. The surrounding soft tissues and bony structures are essentially unremarkable. IMPRESSION: No evidence of acute intracranial pathology and essentially unremarkable, otherwise. Electronically signed by Damián Feng 06/25/2019 12:51 PM
--- NOTE | 2019-06-25 12:56 | PROGRESS NOTE ---
DATE: 06/25/2019 INTERVAL HISTORY: The patient continues to have intermittent hallucinations. Also with intermittent agitation, although pretty cooperative at the time of my exam. No new complaints. REVIEW OF SYSTEMS: Twelve point review of systems negative as per interval history. VITALS: T-max 98.6 degrees, pulse 88, respirations 18, blood pressure 86/39, O2 saturation 97% on room air. PHYSICAL EXAMINATION: General: No acute distress. Vitals: As above. HEENT: Normocephalic, atraumatic. Moist mucous membranes. No cervical adenopathy. Cardiovascular: Regular rate and rhythm. No murmurs noted. Pulmonary: Clear to auscultation bilaterally. No wheezing, rales, or rhonchi. Abdomen: Soft, nontender, nondistended. Bowel sounds positive. Extremities: Peripheral pulses intact. No clubbing, cyanosis, or edema. Neurologic: Cranial nerves grossly intact. No focal deficits identified. Psychiatric: Awake alert. Currently pretty cooperative but oriented to person and month only. ASSESSMENT AND PLAN: 1. Likely schizophrenia. Patient still with hallucinations and occasional agitation. No organic cause found so far. CT did not show anything. We will go ahead and check MRI which should completely rule out any organic cause at this point. Currently on Zyprexa with teresita Arenas if she gets significantly agitated. Trying to get some kind of psych placement for her. 2. Low blood pressure, likely chronic. Patient is asymptomatic. She is up walking the room with no difficulty whatsoever. Slightly improved with midodrine which will continue, but likely nothing further to do with that. 3. Urinary tract infection. Urine culture growing out Escherichia coli. We will finish treatment with Keflex tomorrow. 4. Anemia, both iron deficiency and folate deficiency. On replacement with those and blood counts stable. 5. Hypokalemia resolved.
[2019-06-25] MEDS: ATIVAN IV PRN ×2 (14:14→20:16)
[2019-06-25] MEDS: TYLENOL PO PRN (18:36)
[2019-06-25] MEDS: ZYPREXA ZYDIS PO SCH (20:17)
[2019-06-26] MEDS: ATIVAN IV PRN (08:57)
[2019-06-26] MEDS: KEFLEX PO SCH (08:57)
[2019-06-26] MEDS: FOLIC ACID PO SCH (08:57)
[2019-06-26] MEDS: ICAR-C PO SCH (08:57)
[2019-06-26] MEDS: PROAMATINE PO SCH (08:58)
--- NOTE | 2019-06-26 11:07 | DISCHARGE SUMMARY ---
ADMISSION DATE: 06/18/2019 DISCHARGE DATE: 06/26/2019 DISCHARGE DIAGNOSES: 1. Likely schizophrenia. 2. Chronic hypotension. 3. Urinary tract infection, resolved. 4. Iron deficiency anemia. 5. Folate deficiency. HOSPITAL COURSE: The patient presented with significant confusion, hallucinations, disorientation. The patient's initial blood pressure was low at 68/35 shortly after admission. Initial concern was for sepsis, but the only thing that was found was a mild UTI. The UTI was treated and she was given fluid resuscitation, but blood pressure did not really change. She was eventually started on midodrine with modest improvement in blood pressure. At that point, patient was asymptomatic and it was thought she likely has chronic low blood pressure, and given her lack of symptoms, she was just maintained on the midodrine. She completed a course of treatment for the UTI and antibiotics were discontinued prior to discharge. Her mental status improved a little bit, but she continued to have intermittent hallucinations and agitation. It was thought that the patient's tissue was likely a primary psychiatric disorder, so psychiatric placement was sought. Patient now with a place at [facility]. Chest x-ray, head CT, and later MRI of the brain with and without contrast were all unremarkable. Lab work was unremarkable for the most part. She was found to be mildly iron and folate deficient and was started on those. B12 was within normal limits. test was negative. Her a.m. cortisol and cortisol stimulation test were both unremarkable. She had some mild low potassium, which improved rapidly replacement, but no major electrolyte disturbances. She had mild anemia, but never required transfusion, and hemoglobin improved with iron and folate repletion from 8.6 just after admission, up to 9.3 at discharge. RPR was pending at the time of discharge. DISCHARGE MEDICATIONS: Zyprexa 5 mg p.o. every night at bedtime, folic acid 1 mg p.o. daily, iron tablet daily, midodrine 10 mg p.o. t.i.d., Tylenol 650 mg p.o. every 6 hours as needed. DISCHARGE VITAL SIGNS: Temperature 97.9 degrees, pulse 80, respirations 16, blood pressure 87/50, and O2 saturation 94% on room air. FOLLOWUP AND PLAN: The patient discharging to psychiatric facility for further stabilization of her likely schizophreniform disorder. Continue midodrine for chronic low blood pressure. [facility]
[2019-06-26 11:26] VITALS: BP 97/58
[2019-06-26] MEDS: GEODON IM PRN (11:40)
== END 2019-06-26 13:06 | DRG 885 ==
LOC: SUPCPDRO → ED 15:35 → EDIPHOLD 06-18 08:25 → SUATTDRO 06-18 08:25 → ICU 06-18 15:46 → 1N 06-20 23:21
PROVIDERS: ATTEND Internal Medicine